=== PATIENT | male | born 1965 | race Caucasian/White ===

== ENCOUNTER 2016-12-16 00:16 | Emergency (ER) | payer BC ==
[~2016-12-16] VITALS: Ht 167.6 cm; Wt 63.6 kg
[~2016-12-16 00:16] MED LIST: CEPHALEXIN500 MG OR; LORTAB 5 OR
[2016-12-16 02:21] VITALS: BP 119/82
== END 2016-12-16 02:21 | disposition home or self-care (01) | DRG 563 ==
LOC: ED 00:16
DX: S93.402A Sprain of unspecified ligament of left ankle, initial encounter (principal); I10 Essential (primary) hypertension; H54.51 Low vision, right eye, normal vision left eye; X50.1XXA Overexertion from prolonged static or awkward postures, initial encounter

== ENCOUNTER 2020-10-01 19:00 | Emergency (ER) | payer BC ==
[~2020-10-01] VITALS: Ht 165.1 cm; Wt 65.0 kg
[2020-10-01 19:00] VITALS: BP 146/90
[2020-10-01] MEDS ORDERED: MECLIZINE25 MG PO (19:47)
[2020-10-01] MEDS ORDERED: CHOLESTEROL MEDICATI (19:47)
[2020-10-01] MEDS ORDERED: LISINOPRIL5 MG PO (19:48)
[2020-10-01] MEDS ORDERED: ASPIRIN81 MG PO (19:48)
[2020-10-01] MEDS ORDERED: NITROGLYCERIN0.4 MG (19:50)
[2020-10-01 20:46] LABS: HEMATOCRIT 39.6 % (39.0-50.0); HEMOGLOBIN 13.3 g/dl (14.0-18.0); IMMATURE GRANULOCYTES 0.5 % (0.0-5.0); MEAN CORPUSCULAR HGB 33.3 pG CALC (26.0-32.0); MEAN CORPUSCULAR HGB CONC 33.6 g/dL CAL (32.0-36.0); NEUT# 3.14 thou/uL (1.82-7.42); RED CELL DISTRI WIDTH 12.1 % (11.5-15.5)
[2020-10-01 21:02] LABS: ALBUMIN 4.3 g/dL (3.2-5.0); ALKALINE PHOSPHATASE 80 u/l (38-126); ANION GAP 12 (6-22 (CALC)); BILIRUBIN, TOTAL 0.6 mg/dL (0.0-1.4); BUN 3 mg/dL (9-20); BUN/CREATININE RATIO 4 (12-20 (CALC)); CARBON DIOXIDE 28 mmol/l (22-30); CHLORIDE 96 mmol/l (95-108); CREATININE 0.7 mg/dL (0.7-1.3); ETHYL ALCOHOL 253 mg/dl (0-30); GFR > 60 ML/MIN (>=60 (CALC)); GFR FOR AFR.AMER. > 60 ML/MIN (>=60 (CALC)); POTASSIUM 3.6 mmol/l (3.5-5.1); SGOT/AST 76 u/l (17-59); SODIUM 133 mmol/l (137-146); TOTAL PROTEIN 7.8 g/dL (6.3-8.2)
[2020-10-01 21:12] LABS: MYOGLOBIN 25 ng/mL (0 - 121)
[2020-10-01 21:28] LABS: ACT PARTIAL THROMBO TIME 24.4 SECONDS (20.0-32.5); PROTHROMBIN TIME 9.9 SECONDS (9.0-12.5)
== END 2020-10-01 20:48 | disposition left against medical advice (07) | DRG 93 ==
LOC: ED 19:00
PROVIDERS: Emergency Medicine
DX: R20.0 Anesthesia of skin (principal); I10 Essential (primary) hypertension; F17.200 Nicotine dependence, unspecified, uncomplicated; G51.9 Disorder of facial nerve, unspecified; Z91.19 Patient's noncompliance with other medical treatment and regimen

== ENCOUNTER 2021-01-31 14:51 | Inpatient (IN) | payer OTHER ==
[~2021-01-31] VITALS: Ht 165.1 cm; Wt 63.6 kg
[~2021-01-31 14:51] MED LIST changes: +ASPIRIN81 MG PO; +CHOLESTEROL MEDICATI; +LISINOPRIL5 MG PO; +MECLIZINE25 MG PO; +NITROGLYCERIN0.4 MG
--- NOTE | 2021-01-31 14:55 | NUR ---
PT TO ROOM WITH A STEADY GAIT.
[2021-01-31 15:33] LABS: HEMATOCRIT 43.1 % (39.0-50.0); HEMOGLOBIN 15.1 g/dl (14.0-18.0); IMMATURE GRANULOCYTES 0.7 % (0.0-5.0); MEAN CORPUSCULAR HGB 33.6 pG CALC (26.0-32.0); NEUT# 5.27 thou/uL (1.82-7.42); RED BLOOD COUNT 4.49 mill/uL (4.70-6.10); RED CELL DISTRI WIDTH 12.2 % (11.5-15.5)
[2021-01-31 15:34] LABS: URINE BLOOD DIPSTICK NEGATIVE (NEGATIVE); URINE COLOR YELLOW; URINE GLUCOSE - DIPSTICK NEGATIVE (NEGATIVE); URINE KETONE 15 mg/dL (NEGATIVE); URINE LEUK ESTERASE NEGATIVE (NEGATIVE); URINE PROTEIN - DIPSTICK TRACE mg/dL (NEG-TRACE); URINE SPECIFIC GRAVITY 1.025
[2021-01-31 15:35] LABS: URINE BILIRUBIN - DIPSTICK SMALL (NEGATIVE)
[2021-01-31 15:36] LABS: URINE NITRITE - DIPSTICK NEGATIVE (Negative)
[2021-01-31 15:49] LABS: ALBUMIN 3.7 g/dL (3.2-5.0); ALKALINE PHOSPHATASE 97 u/l (38-126); BILIRUBIN, TOTAL 0.5 mg/dL (0.0-1.4); BUN 5 mg/dL (9-20); BUN/CREATININE RATIO 8 (12-20 (CALC)); CARBON DIOXIDE 26 mmol/l (22-30); CHLORIDE 86 mmol/l (95-108); CREATININE 0.6 mg/dL (0.7-1.3); GFR > 60 ML/MIN (>=60 (CALC)); GFR FOR AFR.AMER. > 60 ML/MIN (>=60 (CALC)); POTASSIUM 3.2 mmol/l (3.5-5.1); SGOT/AST 110 u/l (17-59); TOTAL PROTEIN 7.2 g/dL (6.3-8.2)
[2021-01-31 15:55] LABS: ANION GAP 13 (6-22 (CALC)); SODIUM 122 mmol/l (137-146)
--- NOTE | 2021-01-31 16:00 | NUR ---
BROUGHT IN BEDSIDE COMODE TO PT, PT AWARE OF DIAGNOSIS AND PRECAUTIONS PLACED
[2021-01-31 16:01] LABS: MYOGLOBIN 20 ng/mL (0 - 121)
--- NOTE | 2021-01-31 18:25 | NUR ---
GAVE REPORT TO EDITH RN, PT AWAITING MD ORDERS, AND TRANSPORT
[2021-01-31 18:51] LABS: PROTHROMBIN TIME 10.8 SECONDS (9.0-12.5)
--- NOTE | 2021-01-31 19:15 | NUR ---
TRANSPORTED PT TO [facility] RN NOTIFIED KATHLEEN SHARMA PLACE ON CARDIAC MONITORING, , FLUIDS AND IVABX TRANSPORTED WITH PT
[2021-01-31 20:05] VITALS: BP 135/73
--- NOTE | 2021-01-31 20:05 | NUR ---
PT REPORTEDLY ARRIVED TO MED SURG FLOOR VIA WC ACCOMPANIED BY ED NURSE REPORTED BY WEEKEND ANCHOR'S. V/S WERE OBTAINED AND PT ORIENTED TO ROOM, CALL SYSTEM, LIGHTS AND BED.
--- NOTE | 2021-01-31 20:45 | NUR ---
ENTERED THE ROOM, PT IS IN THE BED IN HIGH FOWLERS POSITION RESTING. 97% OXYGEN SAT ON RA AT THIS TIME. PT ASSESSMENT COMPLETED, LUNG SOUNDS ARE CLEAR/DIMINISHED. THERE IS A BAG OF NORMAL SALINE FULL ALONG WITH A BAG NOT ATTACHED TO THE PT OR RUNNING. BOTH MEDICATIONS WERE LEFT AT BEDSIDE NOT RUNNING. IV SITE IS STILL PATENT AND APPEARS HEALTHY. IVF ADMINISTERED AT THIS TIME ALONG WITH ANTIBIOTIC IV THERAPY ORDERS PREVIOUSLY PROVIDED FELICITAS IN THE DAY WHILE PT WAS IN THE ED. PT REPORTS THAT HE HAS BEEN ASKING FOR A NICOTINE PATCH SINCE ARRIVING TO THE HOSPITAL AND THE ED NURSE STATED, "THEY CAN GIVE YOU THAT UP STAIRS WHEN YOU GET THERE. PHYSICIAN NOTIFIED AND NEW ORDERS WERE RECEIVED. AWAITING PHARMACY TO VERIFY.
--- NOTE | 2021-01-31 21:43 | NUR ---
IV FLUIDS NOT SCANNING ORDERED, CONFIRMED DOSE AND ORDERS WITH LOLIS GOSS AND IVF ADMINISTERED PHYSICIAN ORDERS PROVIDED.
--- NOTE | 2021-01-31 22:45 | NUR ---
ORDERS CLARIFIED WITH PHARMACY, STILL WAITING FOR MED ORDERS TO BE VERIFIED. EXPLAINED TO THE PT THIS. HE VERBALIZED UNDERSTANDING.
--- NOTE | 2021-01-31 23:57 | NUR ---
Upon walking into the room, pt had his jeans laying over him, he did not have a blanket. I provided blanket and pitcher of water at this time for comfort and extra blanket prn. Pt oxygen sat 96% on RA. He is awake watching tv. Medicated as orders available for n/pain, cough and nicotine patch. Pt provided tv dinner and coffe per request also at this time.
[2021-02-01 00:30] VITALS: BP 127/82
--- NOTE | 2021-02-01 03:38 | NUR ---
PT APPEARS TO BE SLEEPNG, RESP EVEN AND NON-LABORED. NO S/O DISTRESS NOTED.
[2021-02-01 05:29] VITALS: BP 123/82
[2021-02-01 06:07] LABS: HEMATOCRIT 40.6 % (39.0-50.0); HEMOGLOBIN 13.9 g/dl (14.0-18.0); IMMATURE GRANULOCYTES 0.5 % (0.0-5.0); MEAN CELL VOLUME 97.1 fL CALC (80.0-100.0); MEAN CORPUSCULAR HGB 33.3 pG CALC (26.0-32.0); MEAN CORPUSCULAR HGB CONC 34.2 g/dL CAL (32.0-36.0); NEUT# 6.47 thou/uL (1.82-7.42); RED BLOOD COUNT 4.18 mill/uL (4.70-6.10); RED CELL DISTRI WIDTH 12.3 % (11.5-15.5)
[2021-02-01 06:08] LABS: ALKALINE PHOSPHATASE 77 u/l (38-126); ANION GAP 11 (6-22 (CALC)); BUN 6 mg/dL (9-20); BUN/CREATININE RATIO 12 (12-20 (CALC)); CARBON DIOXIDE 27 mmol/l (22-30); CHLORIDE 92 mmol/l (95-108); CREATININE 0.5 mg/dL (0.7-1.3); GFR > 60 ML/MIN (>=60 (CALC)); GFR FOR AFR.AMER. > 60 ML/MIN (>=60 (CALC)); POTASSIUM 3.6 mmol/l (3.5-5.1); SGOT/AST 67 u/l (17-59); SODIUM 127 mmol/l (137-146); TOTAL PROTEIN 5.9 g/dL (6.3-8.2)
[2021-02-01 06:11] LABS: BILIRUBIN, TOTAL 0.2 mg/dL (0.0-1.4)
[2021-02-01 07:30] VITALS: BP 128/82
--- NOTE | 2021-02-01 08:15 | NUR ---
PATIENT LAYING IN BED AT THIS TIME. PATIENT SPO2 ON ROOM AIR IS CURRENTLY 92 %/. ENERGY CONTROL OFFICER DONE AT THIS TIME SEE INTERVIENTIONS. BOWEL SOUNDS PRESENT IN ALL FOUR QUADS. AND LUNG ALBARADO ARE CLEAR/DIMINISH IN UPPER AND LOWER ALBARADO. PATIENT STATES HE IS A SMOKER AND DRINKS ABOUT 5-8 DRINKS A DAY BUT CAN GO LONG PERIODS OF TIME WITHOUT DRINKING WITHOUT ANY PROBLEMS. PATIENT DENIES ANY PAIN CALL LIGHT IS WITHIN REACH SIDERAILS ARE UP X 2
[2021-02-01] MEDS ORDERED: ASPIRIN 81 LOW81 MG (11:19)
[2021-02-01] MEDS ORDERED: PROAIR HFA108 MCG/AC (11:21)
[2021-02-01] MEDS ORDERED: NITROGLYCERIN0.4 MG (11:21)
[2021-02-01] MEDS ORDERED: MECLIZINE25 MG PO (11:26)
[2021-02-01] MEDS ORDERED: MELOXICAM7.5 MG PO (11:29)
[2021-02-01] MEDS ORDERED: TRAMADOL HYDROC50 M1 PO (11:31)
[2021-02-01 12:00] VITALS: BP 143/93
[2021-02-01] MEDS ORDERED: ZESTRIL5 M1 PO (12:02)
[2021-02-01] MEDS ORDERED: GABAPENTIN400 M2 PO (12:04)
[2021-02-01] MEDS ORDERED: CARISOPRODOL350 MG PO (12:05)
[2021-02-01] MEDS ORDERED: PRAVASTATIN40 MG PO (12:05)
--- NOTE | 2021-02-01 12:05 | NUR ---
PATIENT SITTING UP IN BED AT THIS TIME. DENIES ANY NEEDS AND OR PAIN SIDERAILS UP X 2 CALL LIGHT IS WITHIN REACH 02 ON AT 2 LITERS AT THIS TIME.
--- NOTE | 2021-02-01 13:15 | NUR ---
SIX MINUTE WALK TEST PREFORMED AT THIS TIME. PATIENT AT REST WAS 94% AT ROOM AIR. PATIENT WALKED IN [place] FOR 5 MINUTES AND SPO2 WAS 95%. PATIENT REFUSING TO PLACE O2 ON STATING I DO NOT NEED IT "I WANT TO GO HOME". RESULTS GIVEN TO DR. MONROY.
[2021-02-01] MEDS ORDERED: DEXAMETHASON6 MG PO (13:53)
--- NOTE | 2021-02-01 14:13 | NUR ---
PATIENT D/C AT THIS TIME PATIENT VERBALIZES UNDERSTANDING OF D/C INSTRUCTIONS AT THIS TIME.
--- NOTE | 2021-02-01 14:20 | NUR ---
Discharge instructions given. Patient verbalizes understanding of same. Discharged in stable condition via Wheelchair to Home with family. All belongings sent with pt. PATIENT ADVISED TO SECOND CUTTER MEDICATION FROM PHARMACY.
--- NOTE | 2021-02-02 11:06 | NUR ---
BLOOD CULTURE SHOWS BACILLUS SPECIES, PROBABLE CONTAMINANT. CALLED TO [facility] NO NEW ORDERS
== END 2021-02-01 14:20 | disposition home or self-care (01) | DRG 177 ==
LOC: ED 14:51 → ED-I 17:11 → ED 17:18 → MS2 17:19
PROVIDERS: Emergency Medicine; ADMIT Internal Medicine; ATTEND Internal Medicine
DX: U07.1 COVID-19 (principal); J12.82 Pneumonia due to coronavirus disease 2019; J96.01 Acute respiratory failure with hypoxia; E87.1 Hypo-osmolality and hyponatremia; J44.0 Chronic obstructive pulmonary disease with (acute) lower respiratory infection; E87.8 Other disorders of electrolyte and fluid balance, not elsewhere classified; I10 Essential (primary) hypertension; I25.10 Atherosclerotic heart disease of native coronary artery without angina pectoris; F17.200 Nicotine dependence, unspecified, uncomplicated; E78.5 Hyperlipidemia, unspecified; Z95.5 Presence of coronary angioplasty implant and graft; Z72.89 Other problems related to lifestyle
CPT/HCPCS: J1650; Q9967

== ENCOUNTER 2021-11-22 14:53 | Emergency (ER) | payer SELFPAY ==
[~2021-11-22] VITALS: Ht 165.1 cm; Wt 65.9 kg
[~2021-11-22 14:53] MED LIST changes: +ASPIRIN 81 LOW81 MG; +CARISOPRODOL350 MG PO; +DEXAMETHASON6 MG PO; +GABAPENTIN400 M2 PO; +MELOXICAM7.5 MG PO; +PRAVASTATIN40 MG PO; +PROAIR HFA108 MCG/AC; +TRAMADOL HYDROC50 M1 PO; +ZESTRIL5 M1 PO
[2021-11-22 15:23] VITALS: BP 129/84
[2021-11-22] MEDS ORDERED: NAPROXEN500 MG PO (17:50)
[2021-11-22] MEDS ORDERED: FLEXERIL5 M1 PO (17:50)
== END 2021-11-22 18:15 | disposition home or self-care (01) | DRG 563 ==
LOC: ED 14:53
DX: S39.012A Strain of muscle, fascia and tendon of lower back, initial encounter (principal); I10 Essential (primary) hypertension; F17.210 Nicotine dependence, cigarettes, uncomplicated; X50.3XXA Overexertion from repetitive movements, initial encounter; Y93.89 Activity, other specified

== ENCOUNTER 2022-02-10 22:45 | Emergency (ER) | payer OTHER ==
[~2022-02-10] VITALS: Ht 165.1 cm; Wt 65.0 kg
[~2022-02-10 22:45] MED LIST changes: +FLEXERIL5 M1 PO; +NAPROXEN500 MG PO
[2022-02-10 22:53] VITALS: BP 123/84
[2022-02-10 23:00] VITALS: BP 129/82
[2022-02-10 23:30] VITALS: BP 117/73
[2022-02-11] VITALS: BP 100/71
[2022-02-11] MEDS ORDERED: LORTAB5 PO (00:02)
[2022-02-11 00:23] VITALS: BP 100/71
== END 2022-02-11 00:30 | disposition home or self-care (01) | DRG 563 ==
LOC: ED 22:45
PROC: 2W3CX1Z Immobilization of Right Lower Arm using Splint (ICD-10-PCS; principal; 2022-02-10)
DX: S52.501A Unspecified fracture of the lower end of right radius, initial encounter for closed fracture (principal); S52.611A Displaced fracture of right ulna styloid process, initial encounter for closed fracture; I10 Essential (primary) hypertension; F17.200 Nicotine dependence, unspecified, uncomplicated; W19.XXXA Unspecified fall, initial encounter

== ENCOUNTER 2024-02-21 17:13 | Inpatient (IN) | payer OTHER ==
[~2024-02-21] VITALS: Ht 165.1 cm; Wt 62.6 kg
[2024-02-21] VITALS (19 sets, daily range): BP systolic 78–113; BP diastolic 50–75
[~2024-02-21 17:13] MED LIST changes: +HYDROCO/APAP1 TA9 PO; +IBUPROFEN600 MG PO; +LORTAB5 PO; +WHEELCHAIR EX
[2024-02-21] MEDS ORDERED: MORPHINE SULFATE 4 MG/ML VIAL IV ONE (17:45)
[2024-02-21] MEDS ORDERED: ONDANSETRON HCl 4 MG/2 ML SDV IV ONE ×2 (17:45→21:10)
[2024-02-21] MEDS ORDERED: SODIUM CHLORIDE 0.9% 1,000 ML IV ONE ×4 (17:45→21:20)
--- NOTE | 2024-02-21 17:50 | NUR ---
PT TO ROOM VIA WC
[2024-02-21] MEDS ORDERED: AMLODIPINE BESYL5 MG PO (17:53)
[2024-02-21] MEDS ORDERED: PEPCID40 MG PO (17:54)
[2024-02-21] MEDS ORDERED: DICYCLOMINE HCL20 MG PO (17:55)
[2024-02-21] MEDS ORDERED: PROTONIX40 M2 PO (17:56)
[2024-02-21] MEDS ORDERED: MILK THISTLE175 MG PO (17:57)
[2024-02-21 18:10] LABS: BASO% 0.7 % (0-3); EOS% 0.8 % (0-8); HEMATOCRIT 32.5 % (39.0-50.0); HEMOGLOBIN 11.1 g/dl (14.0-18.0); IMMATURE GRANULOCYTES 0.6 % (0.0-5.0); LYMPH% 21.8 % (15-41); MEAN CELL VOLUME 98.8 fL CALC (80.0-100.0); MEAN CORPUSCULAR HGB 33.7 pG CALC (26.0-32.0); MEAN CORPUSCULAR HGB CONC 34.2 g/dL CAL (32.0-36.0); MONO% 13.8 % (2-13); NEUT# 6.65 thou/uL (1.82-7.42); NEUT% 62.3 % (42-76); RED BLOOD COUNT 3.29 mill/uL (4.70-6.10); RED CELL DISTRI WIDTH 13.3 % (11.5-15.5)
[2024-02-21 18:19] LABS: ALBUMIN 3.2 g/dL (3.2-5.0); CREATININE 0.9 mg/dL (0.7-1.3); TOTAL PROTEIN 6.6 g/dL (6.3-8.2)
[2024-02-21 18:25] LABS: BILIRUBIN, TOTAL 1.9 mg/dL (0.2-1.3); POTASSIUM 2.9 mmol/l (3.5-5.1)
[2024-02-21] MEDS ORDERED: KETOROLAC TROMETHAMINE 15 MG/ML SDV IV ONE (18:30)
--- NOTE | 2024-02-21 18:56 | NUR ---
REPORT RECEIVED FROM Marie BERTRAND RN.
--- NOTE | 2024-02-21 18:57 | NUR ---
REPORT TO LOLIS HAIDER
--- NOTE | 2024-02-21 20:00 | NUR ---
PATIENT STANDING IN ROOM, PATIENT STATES HE IS TIRED OF SITTING ON THE HARD BED, PROVIDED PATIENT WITH CHAIR AND PILLOW.
[2024-02-21] MEDS ORDERED: MAGNESIUM SULFATE HEPTAHYDRATE 50 ML IV ONE (20:05)
[2024-02-21] MEDS ORDERED: POTASSIUM CHLORIDE 20MEQ 100 ML IV ONE ×2 (20:05→20:10)
--- NOTE | 2024-02-21 20:15 | NUR ---
MEDICATION NOT IN PYXIS, TREE SURGEON HELPER NOTIFIED.
--- NOTE | 2024-02-21 21:07 | NUR ---
PATIENT OFFERED A SECOND IV FOR MEDICATION INFUSIONS. PATIENT REPORTS HE DOES NOT WANT TO BE STUCK AGAIN. STATES HE IS "TIRED OF BEING STUCK". PATIENT ADVISED IT WOULD BE A COUPLE HOURS UNTIL WE COMPLETE MEDICATIONS. PATIENT REPORTS THAT IS OKAY.
[2024-02-21] MEDS ORDERED: VANCOMYCIN HCL 1 GM in SODIUM CHLORIDE 0.9% 250 ML IV ONE (21:10)
[2024-02-21] MEDS ORDERED: metroNIDAZOLE 500 MG/TAB PO ONE (21:10)
[2024-02-21] MEDS ORDERED: CALCIUM GLUCONATE 1 GM in SODIUM CHLORIDE 0.9% 50 ML IV ONE (21:20)
--- NOTE | 2024-02-21 21:23 | NUR ---
MD AT BEDSIDE TO DISCUSS PLAN TO ADMIT PATIENT.
[2024-02-21] MEDS ORDERED: MAGNESIUM HYDROXIDE 30 ML UDC PO PRN (21:35)
[2024-02-21] MEDS ORDERED: LACTATED RINGER'S 1,000 ML IV PRN (21:35)
[2024-02-21] MEDS ORDERED: ONDANSETRON HCl 4 MG/2 ML SDV IV PRN (21:35)
[2024-02-21] MEDS ORDERED: ACETAMINOPHEN 325 MG/TAB PO PRN (21:35)
[2024-02-21] MEDS ORDERED: MORPHINE SULFATE 4 MG/ML VIAL IV PRN (21:40)
[2024-02-21] MEDS ORDERED: KETOROLAC TROMETHAMINE 15 MG/ML SDV IV PRN (21:40)
--- NOTE | 2024-02-21 21:59 | NUR ---
REPORT CALLED TO Emmie GREENE RN.
--- NOTE | 2024-02-21 22:26 | NUR ---
PATIENT TRASNPORTED TO ROOM 262, CARE HANDED OVER TO Emmie GREENE RN. 2 BAGS OF POTASSIUM 20MEQ RIDERS HANDED TO NURSE. MAGNESIUM INFUSING.
--- NOTE | 2024-02-21 23:00 | NUR ---
RECEIVED FROM ER, ALERT ORIENTED X4. RESP EVEN AND UNLABORED. AMBULATORY WITH STANDBY ASSIST. 20G IN RIGHT AC. ABDOMEN DISTENDED, FIRM, TENDER TO TOUCH, C/O PAIN IN RIGHT REGION OF ABDOMEN. URINAL GIVEN FOR URINATION. ORIENTED TO UNIT AND CAREPLAN. VOICED UNDERSTANDING. REQUESTING FOOD. EXPLAINED NPO STATUS. STRONG ODOR OF ALCOHOL ON BREATH. CALL LIGHT IN REACH.
[2024-02-21] MEDS ORDERED: SODIUM CHLORIDE 0.9% 500 ML IV ONE (23:05)
[2024-02-21] MEDS ORDERED: SODIUM CHLORIDE 0.9% 100 ML IV ONE (23:17)
[2024-02-21] MEDS ORDERED: PIPERACILLIN SOD TAZOBACTAM SO IV ONE (23:25)
--- NOTE | 2024-02-22 01:00 | NUR ---
RESTING IN BED. ALERT, ORIENTED X4. REQUESTED SOMETHING FOR A COUGH. PATIENT HAS CHRONIC SMOKERS COUGH. LUNGS DIMINISHED. ENCOURAGED TO USE CALL LIGHT FOR ASSISTANCE TO BATHROOM DUE TO NOT WANTING TO USE URINAL. RESP EVEN AND UNLABORED. MEDICATED WITH PRN PAIN MED ORDERED.
[2024-02-22 04:39] VITALS: BP 81/50
--- NOTE | 2024-02-22 05:00 | NUR ---
RESTING IN BED. ALERT, ORIENTED. GOOD RESULTS FROM PRN PAIN MEDICATION. AMBULATES TO BATHROOM WITH STEADY GAIT. DOES NOT WANT TO USE URINAL. COMPLETED POTASSIUM, MAG, AND CALCIUM INFUSIONS ORDERED. NO ADVERSE REACTIONS NOTED. CONTINUES ON NPO STATUS. REQUESTING TO EAT. WILL DISCUSS WITH THIS AM WHEN ARRIVES. REFUSED SKIN ASSESSMENT. DID NOT WANT ME TO LOOK AT [place] OR FELECIA AREA. STATED THAT THERE WASNT NOTHING TO SEE.
[2024-02-22 05:04] LABS: BASO% 0.7 % (0-3); EOS% 1.5 % (0-8); HEMATOCRIT 33.8 % (39.0-50.0); HEMOGLOBIN 11.6 g/dl (14.0-18.0); IMMATURE GRANULOCYTES 0.6 % (0.0-5.0); LYMPH% 24.7 % (15-41); MEAN CELL VOLUME 100.6 fL CALC (80.0-100.0); MEAN CORPUSCULAR HGB 34.5 pG CALC (26.0-32.0); MEAN CORPUSCULAR HGB CONC 34.3 g/dL CAL (32.0-36.0); MONO% 11.8 % (2-13); NEUT# 5.4 thou/uL (1.82-7.42); NEUT% 60.7 % (42-76); RED BLOOD COUNT 3.36 mill/uL (4.70-6.10); RED CELL DISTRI WIDTH 13.4 % (11.5-15.5)
[2024-02-22 05:07] LABS: ALBUMIN 2.8 g/dL (3.2-5.0); BILIRUBIN, TOTAL 1.5 mg/dL (0.2-1.3); CREATININE 0.8 mg/dL (0.7-1.3); MAGNESIUM 1.9 mg/dL (1.6-2.3); POTASSIUM 3.2 mmol/l (3.5-5.1); TOTAL PROTEIN 6.1 g/dL (6.3-8.2)
[2024-02-22 05:18] LABS: ACT PARTIAL THROMBO TIME 29.2 SECONDS (20.0-32.5); INTERNATIONAL NORMALIZED RATIO 1.3 RATIO (0.7-1.3)
[2024-02-22 05:22] LABS: PROTHROMBIN TIME 12.1 SECONDS (9.0-12.5)
[2024-02-22] MEDS ORDERED: chlordiazePOXIDE HCL 25 MG CAP PO PRN (05:30)
[2024-02-22] MEDS ORDERED: LORazepam 2 MG/ML IV PRN (05:30)
[2024-02-22 06:17] VITALS: BP 99/71
[2024-02-22] MEDS ORDERED: POTASSIUM CHLORIDE 20MEQ 200 ML IV SCH (07:00)
--- NOTE | 2024-02-22 07:14 | NUR ---
pt is aox4 sitting up in bed watching tv. respirations are even and unlabored, faint expiratory wheezing noted on left upper and lower lobes, bowel sound active in all 4 quadrants, abd is distended and firm, pedal pulses are palpable to touch. pt denies pain at this time, pt has a non productive cough he states started when he came into the hospital from the "boxed up air".
--- NOTE | 2024-02-22 07:42 | NUR ---
PT OFF THE FLOOR VIA STAFF WHEELCHAIR TRANSPORT FOR ULTRASOUND.
[2024-02-22] MEDS ORDERED: POTASSIUM CHLORIDE 20MEQ 100 ML IV SCH (08:00)
[2024-02-22] MEDS ORDERED: MULTIPLE VITAMIN 10 ML,THIAMINE HCL 100 MG in DEXTROSE 5% / 0.9% NACL 1,000 ML IV ONE (08:00)
--- NOTE | 2024-02-22 08:25 | NUR ---
NO PART TAKEN IN THE CARE OF THIS PATIENT. ACCESSED IN ORDER TO DEPART.
[2024-02-22] MEDS ORDERED: DEXTROMETHORPHAN-Guaifenesin 20-200 MG/10 ML UDC PO PRN (08:35)
[2024-02-22] MEDS ORDERED: MIDODRINE HCL 5 MG TAB PO SCH ×2 (09:00→21:00)
[2024-02-22 11:11] VITALS: BP 101/63
[2024-02-22] MEDS ORDERED: PIPERACILLIN Sodium-Tazobactam 4.5 GM in SODIUM CHLORIDE 0.9% 100 ML IV SCH ×2 (12:00)
--- NOTE | 2024-02-22 12:01 | NUR ---
PT SITTING UP IN BED WITH FAMILY BY HIS SIDE. PT DENIES PAIN AT THIS TIME.
[2024-02-22] MEDS ORDERED: NICOTINE TRANSDERMAL 21 MG/PATCH TD SCH (12:30)
--- NOTE | 2024-02-22 13:30 | NUR ---
Report received, taking over care from previous nurse. Patient is resting in bed, c/o abdominal pain. Will medicate with PRN meds. Patient is A&Ox4, on room air, family at bedside. NSR on tele monitor. IV fluids running as ordered. All needs addressed at this time, call light within reach.
[2024-02-22 14:12] VITALS: BP 128/71
[2024-02-22 15:06] VITALS: BP 124/85
--- NOTE | 2024-02-22 16:00 | NUR ---
Patient is resting in bed, denies any pain. Family at bedside. Patient is A&Ox4, on room air. IV fluids running as ordered. NSR on tele monitor, VS WNL. All needs addressed at this time, call light within reach.
[2024-02-22] MEDS ORDERED: SODIUM CHLORIDE 0.9% 1,000 ML IV PRN (16:25)
[2024-02-22 19:44] VITALS: BP 118/74
--- NOTE | 2024-02-22 20:00 | NUR ---
REPORT RECIEVED FROM [facility] NURSE. SHANIQUA DANIELLE PT RESTING IN BED IN HIGH FOWLERS POSITION WATCHING TELEVISION. PT IS A&O X3, AND ABLE TO MAKE NEEDS KNOWN. PRODUCTIVE COUGH NOTED. PT REMAINS ON TELE. NICOTINE PATCH NOTED TO THE (R) ARM. PT STATES THAT HE HAS ABDOMINAL PAIN, WILL FOLLOW UP PER EMAR. SPUTUM COLOR IS CLEAR. UPPER LOBES CORASE, AND CRACKLES, UPON AUSUCLTATION; LOWER LOBES DIMINSHED. PERIPHERAL PULSES STRONG. BOWEL SOUNDS ACTIVE X4 QUADRANTS. PT STATES THAT HIS LAST BOWEL MOVEMENT WAS TODAY. PT EDUCATED ON POC AND MEDICATION SCHEDULE. CALL LIGHT IN REACH, AND SAFETY PRECAUTIONS IN PLACE.
[2024-02-22] MEDS ORDERED: ENOXAPARIN SODIUM 40 MG/0.4 ML SYR SC SCH (21:00)
--- NOTE | 2024-02-23 | NUR ---
PT RESTING IN BED WITH EYES CLOSED. RESPIRATIONS ARE EVEN AND UNLABORED. PT IS EASILY AROUSABLE. NO S&S OF DISTRESS NOTED AT THIS TIME. TELE MONITOR IN PLACE. CALL LIGHT IN REACH, AND SAFETY PRECAUTIONS IN PLACE.
[2024-02-23 00:50] VITALS: BP 98/59
--- NOTE | 2024-02-23 04:20 | NUR ---
PT RESTING IN BED ON LEFT SIDE WITH EYES CLOSED. PT IS EASILY AROUSABLE, AND RESPIRATIONS ARE EVEN AND UNLABORED. NO S&S OF DISTRESS NOTED AT THIS TIME. TELE MONITOR REMAINS IN PLACE. CALL LIGHT IN REACH, AND SAFETY PRECAUTIONS IN PLACE.
[2024-02-23 04:52] VITALS: BP 138/92
--- NOTE | 2024-02-23 05:09 | NUR ---
LAB AT BEDSIDE. PT STATES THAT HE FEELS NAUSEOUS, AND BEGAN VOMITIING. MEDICATION ADMINISTERED PER EMAR FOR NAUSEA. PT ALSO STATES THAT HE FEELS SOB DUE TO COUGH AND VOMIT. COUGH MEDICATION ADMINISTERED FOR COUGH. NC IN PLACE WITH 2L O2 PER PT REQUEST AND COMFORT. NO RESPIRATORY DISTRESS NOTED. CALL LIGHT IN REACH, AND SAFETY PRECAUTIONS IN PLACE.
[2024-02-23 05:46] LABS: BASO% 0.9 % (0-3); HEMATOCRIT 35.7 % (39.0-50.0); HEMOGLOBIN 12.3 g/dl (14.0-18.0); IMMATURE GRANULOCYTES 0.4 % (0.0-5.0); LYMPH% 24.5 % (15-41); MEAN CELL VOLUME 101.4 fL CALC (80.0-100.0); MEAN CORPUSCULAR HGB 34.9 pG CALC (26.0-32.0); MEAN CORPUSCULAR HGB CONC 34.5 g/dL CAL (32.0-36.0); MONO% 15.6 % (2-13); NEUT# 5.51 thou/uL (1.82-7.42); NEUT% 56.6 % (42-76); RED BLOOD COUNT 3.52 mill/uL (4.70-6.10); RED CELL DISTRI WIDTH 13.8 % (11.5-15.5)
[2024-02-23 06:04] LABS: CREATININE 0.7 mg/dL (0.7-1.3); MAGNESIUM 1.5 mg/dL (1.6-2.3); TOTAL PROTEIN 6.6 g/dL (6.3-8.2)
[2024-02-23 06:07] LABS: BILIRUBIN, TOTAL 2.3 mg/dL (0.2-1.3); POTASSIUM 3.7 mmol/l (3.5-5.1)
[2024-02-23 06:24] LABS: URINE BLOOD DIPSTICK Negative (NEGATIVE); URINE COLOR Yellow; URINE GLUCOSE - DIPSTICK Negative (NEGATIVE); URINE KETONE Trace mg/dL (NEGATIVE); URINE LEUK ESTERASE Negative (NEGATIVE); URINE NITRITE - DIPSTICK Negative (Negative); URINE PH 5.5 (4.5-8.0); URINE PROTEIN - DIPSTICK Trace mg/dL (NEG-TRACE); URINE UROBILINOGEN - DIPSTICK 0.2 E.U./dL (0.2)
[2024-02-23 07:33] VITALS: BP 119/81
[2024-02-23 07:53] VITALS: BP 119/81
--- NOTE | 2024-02-23 08:00 | NUR ---
REPORT RECEIVED FROM NIGHT LOLIS. HANNA Salmeron4. S1S2 NOTED, PULSES STRONG, SINUS RHYTHM ON TELE. LUNG SOUNDS DIMINISHED, NO SOB NOTED. ABDOMEN DISTENDED, NON-TENDER. CALL LIGHT IN REACH. VSS.
[2024-02-23] MEDS ORDERED: MULTIPLE VITAMIN TABLET PO SCH (09:00)
[2024-02-23] MEDS ORDERED: FOLIC ACID 1 MG/TAB PO SCH (09:00)
[2024-02-23] MEDS ORDERED: THIAMINE HCL 100 MG TAB PO SCH (09:00)
[2024-02-23] MEDS ORDERED: OMNICEF300 MG PO (09:13)
--- NOTE | 2024-02-23 10:59 | NUR ---
SPOKE WITH PT'S SISTER, MALLORY. AWARE THAT PT WILL DC WITH PRESCTIPTION FOR ABX.
--- NOTE | 2024-02-23 11:43 | NUR ---
Discharge instructions given. Patient verbalizes understanding of instructions. All questions answered Discharged in stable condition via Wheelchair to Home with staff. All belongings sent with pt. IV removed.
[2024-02-23] MEDS ORDERED: cefTRIAXone SODIUM 2 GM in SODIUM CHLORIDE 0.9% 100 ML IV SCH (12:00)
== END 2024-02-23 11:03 | disposition home or self-care (01) | DRG 433 ==
LOC: ED 17:13 → ED-I 21:00 → MS2 21:19 → ED 21:19 → MS2 02-22 10:01
PROVIDERS: Nurse Practitioner; ADMIT Student in an Organized Health Care Education/Training Program; ATTEND Student in an Organized Health Care Education/Training Program
DX: K70.11 Alcoholic hepatitis with ascites (principal); E87.1 Hypo-osmolality and hyponatremia; K70.0 Alcoholic fatty liver; E87.6 Hypokalemia; I95.9 Hypotension, unspecified; I10 Essential (primary) hypertension; J44.9 Chronic obstructive pulmonary disease, unspecified; F10.10 Alcohol abuse, uncomplicated; D53.9 Nutritional anemia, unspecified; F17.210 Nicotine dependence, cigarettes, uncomplicated; Z20.822 Contact with and (suspected) exposure to COVID-19
CPT/HCPCS: J1650; J3475; Q9967

== ENCOUNTER 2024-02-24 10:17 | Emergency (ER) | payer OTHER ==
[2024-02-24] VITALS (9 sets, daily range): BP systolic 115–137; BP diastolic 79–94
[~2024-02-24] VITALS: Ht 165.1 cm; Wt 61.2 kg
[~2024-02-24 10:17] MED LIST changes: +AMLODIPINE BESYL5 MG PO; +DICYCLOMINE HCL20 MG PO; +MILK THISTLE175 MG PO; +OMNICEF300 MG PO; +PEPCID40 MG PO; +PROTONIX40 M2 PO
[2024-02-24 11:05] LABS: BASO% 0.6 % (0-3); EOS% 1.1 % (0-8); HEMATOCRIT 33.8 % (39.0-50.0); HEMOGLOBIN 11.5 g/dl (14.0-18.0); IMMATURE GRANULOCYTES 0.2 % (0.0-5.0); LYMPH% 15.9 % (15-41); MONO% 11.8 % (2-13); NEUT# 6.18 thou/uL (1.82-7.42); NEUT% 70.4 % (42-76); RED BLOOD COUNT 3.38 mill/uL (4.70-6.10); RED CELL DISTRI WIDTH 13.8 % (11.5-15.5)
[2024-02-24 11:12] LABS: ALBUMIN 3.1 g/dL (3.2-5.0); ALKALINE PHOSPHATASE 250 u/l (38-126); ANION GAP 9 (6-22 (CALC)); BILIRUBIN, TOTAL 1.5 mg/dL (0.2-1.3); CARBON DIOXIDE 19 mmol/l (22-30); CHLORIDE 107 mmol/l (95-108); CREATININE 0.6 mg/dL (0.7-1.3); ESTIMATED GFR 112 ML/MIN (>=90 (CALC)); POTASSIUM 3.3 mmol/l (3.5-5.1); SGOT/AST 201 u/l (17-59); SODIUM 132 mmol/l (137-146); TOTAL PROTEIN 6.5 g/dL (6.3-8.2)
[2024-02-24 11:15] LABS: BUN < 2 mg/dL (9-20)
[2024-02-24 11:16] LABS: BUN/CREATININE RATIO < 3 (12-20 (CALC))
[2024-02-24 12:13] LABS: URINE BLOOD DIPSTICK Negative (NEGATIVE); URINE GLUCOSE - DIPSTICK Negative (NEGATIVE); URINE KETONE 15 mg/dL (NEGATIVE); URINE LEUK ESTERASE Negative (NEGATIVE); URINE NITRITE - DIPSTICK Negative (Negative); URINE PROTEIN - DIPSTICK Negative (NEG-TRACE); URINE UROBILINOGEN - DIPSTICK 0.2 E.U./dL (0.2)
[2024-02-24 12:14] LABS: URINE COLOR Dark yellow
[2024-02-24 14:39] LABS: INTERNATIONAL NORMALIZED RATIO 1.3 RATIO (0.7-1.3); PROTHROMBIN TIME 12.3 SECONDS (9.0-12.5)
== END 2024-02-24 15:19 | DRG 433 ==
LOC: ED 10:17
PROVIDERS: Emergency Medicine
DX: K74.60 Unspecified cirrhosis of liver (principal); E87.1 Hypo-osmolality and hyponatremia; R18.8 Other ascites; E87.6 Hypokalemia; I10 Essential (primary) hypertension; F17.200 Nicotine dependence, unspecified, uncomplicated